=== PATIENT | female | born 1955 | race Caucasian/White ===

== ENCOUNTER 2025-03-31 19:12 | Emergency (ER) | payer MEDICARE ==
[~2025-03-31] VITALS: Ht 162.5 cm; Wt 107.0 kg
[~2025-03-31 19:12] MED LIST: ASPIRIN81 M1 PO; CIPROFLOXACIN500 MG PO; LEADER NATURAL PO; MELOXICAM15 MG PO; VIBRAMYCIN100 MG PO; VICO10300 PO
[2025-03-31] MEDS ORDERED: CEPHALEXIN 500 MG CAP PO ONE (21:35)
[2025-03-31] MEDS ORDERED: CEPHALEXIN500 M1 PO (21:45)
[2025-03-31] MEDS ORDERED: Tdap Vaccine 0.5 ML SYR (Adult Vaccine) IM ONE (21:45)
[2025-04-01] MEDS ORDERED: CEPHALEXIN500 M1 PO (09:27)
== END 2025-03-31 21:57 | disposition home or self-care (01) ==
LOC: ED 19:12
DX: S60.455A Superficial foreign body of left ring finger, initial encounter (principal); Z79.82 Long term (current) use of aspirin; Z96.641 Presence of right artificial hip joint; X58.XXXA Exposure to other specified factors, initial encounter; Y93.89 Activity, other specified; Y92.89 Other specified places as the place of occurrence of the external cause; Y99.8 Other external cause status